=== PATIENT | female | born 1995 | race Caucasian/White ===

== ENCOUNTER 2017-07-17 13:10 | Emergency (ER) | payer OTHER ==
[~2017-07-17] VITALS: Ht 152.4 cm; Wt 59.0 kg
[2017-07-17] MEDS ORDERED: PRENATABS FA T1 EACH (13:38)
== END 2017-07-17 17:47 | disposition home or self-care (01) ==
LOC: ER 13:10
DX: K80.80 Other cholelithiasis without obstruction (principal)

== ENCOUNTER 2017-08-13 12:17 | Inpatient (IN) | payer OTHER ==
[~2017-08-13] VITALS: Ht 152.4 cm; Wt 59.0 kg
[~2017-08-13 12:17] MED LIST: PRENATABS FA T1 EACH
[2017-08-26] MEDS ORDERED: INTESTINEX680 M1 PO (11:08)
[2017-08-26] MEDS ORDERED: INTEGRA PLUS C1 EACH PO (11:10)
[2017-08-26] MEDS ORDERED: POLY119PG PO (11:11)
== END 2017-08-26 15:33 | disposition home or self-care (01) | DRG 417 ==
LOC: ER 12:17 → MEDI 18:48 → SURH 18:48 → O/R 08-21 13:34 → ICU 08-22 10:37 → MEDI 08-23 14:14 → SURH 08-23 14:14
PROVIDERS: Surgery
PROC: BW40ZZZ Ultrasonography of Abdomen (ICD-10-PCS; 2017-08-13)
PROC: BF37ZZZ Magnetic Resonance Imaging (MRI) of Pancreas (ICD-10-PCS; 2017-08-13)
PROC: 3E0336Z Introduction of Nutritional Substance into Peripheral Vein, Percutaneous Approach (ICD-10-PCS; 2017-08-14)
PROC: 0F798ZZ Dilation of Common Bile Duct, Via Natural or Artificial Opening Endoscopic (ICD-10-PCS; 2017-08-16)
PROC: 0FC98ZZ Extirpation of Matter from Common Bile Duct, Via Natural or Artificial Opening Endoscopic (ICD-10-PCS; 2017-08-16)
PROC: 0WQF4ZZ Repair Abdominal Wall, Percutaneous Endoscopic Approach (ICD-10-PCS; 2017-08-19)
PROC: 0FT44ZZ Resection of Gallbladder, Percutaneous Endoscopic Approach (ICD-10-PCS; principal; 2017-08-19 11:00)
PROC: 30233N1 Transfusion of Nonautologous Red Blood Cells into Peripheral Vein, Percutaneous Approach (ICD-10-PCS; 2017-08-20)
PROC: BW40ZZZ Ultrasonography of Abdomen (ICD-10-PCS; 2017-08-20)
PROC: BU4CZZZ Ultrasonography of Uterus and Ovaries (ICD-10-PCS; 2017-08-20)
PROC: 4A12X4Z Monitoring of Cardiac Electrical Activity, External Approach (ICD-10-PCS; 2017-08-20)
PROC: 0D9W0ZZ Drainage of Peritoneum, Open Approach (ICD-10-PCS; 2017-08-21)
PROC: 0W3G0ZZ Control Bleeding in Peritoneal Cavity, Open Approach (ICD-10-PCS; 2017-08-21)
PROC: 30233K1 Transfusion of Nonautologous Frozen Plasma into Peripheral Vein, Percutaneous Approach (ICD-10-PCS; 2017-08-21)
PROC: 4A12X4Z Monitoring of Cardiac Electrical Activity, External Approach (ICD-10-PCS; 2017-08-23)
DX: K80.63 Calculus of gallbladder and bile duct with acute cholecystitis with obstruction (principal); K66.1 Hemoperitoneum; D62 Acute posthemorrhagic anemia; K91.840 Postprocedural hemorrhage of a digestive system organ or structure following a digestive system procedure; R74.0 Nonspecific elevation of levels of transaminase and lactic acid dehydrogenase [LDH]; K42.9 Umbilical hernia without obstruction or gangrene

== ENCOUNTER 2023-02-21 23:17 | Emergency (ER) | payer OTHER ==
[~2023-02-21] VITALS: Ht 152.4 cm; Wt 72.6 kg
[~2023-02-21 23:17] MED LIST changes: +INTEGRA PLUS C1 EACH PO; +INTESTINEX680 M1 PO; +POLY119PG PO
[2023-02-22 03:01] LABS: HEMATOCRIT 39.9 % (36.0-45.00); HEMOGLOBIN 13.6 g/dL (12.0-15.00); MEAN CELL VOLUME 83.9 fL (80.00-100.00); MEAN CORPUSCULAR HEMOGLOBIN 28.7 pg (27.00-32.0); MEAN CORPUSCULAR HGB CONC 34.2 g/dl (32.0-36.0); PLATELET COUNT 264 K/uL (150-450); RED BLOOD COUNT 4.76 M/uL (4.00-6.00); RED CELL DISTRIBUTION WIDTH 13.2 % (11.5-14.5)
[2023-02-22 03:52] LABS: CALCIUM 9.4 mg/dL (8.5-10.1); CREATININE SERUM 0.67 mg/dL (0.55-1.02); GFR 104.8; POTASSIUM 3.83 mEq/L (3.5-5.1)
== END 2023-02-22 06:28 | disposition home or self-care (01) ==
LOC: ER 23:17
DX: G44.009 Cluster headache syndrome, unspecified, not intractable (principal); A08.8 Other specified intestinal infections